=== PATIENT | female | born 1990 | race American Indian/Alaskan Native ===

== ENCOUNTER 2017-01-12 14:43 | Inpatient (IN) | payer MEDICAID, OTHER ==
[2017-01-12] MEDS ORDERED: Misoprostol 400 MCG (4 X 100 MCG TAB) RECTAL PRN (17:28)
[2017-01-12] MEDS ORDERED: Sodium Chloride 0.9% 10 ML Syringe FLUSH PRN (17:28)
[2017-01-12] MEDS ORDERED: Carboprost Tromethamine 250 MCG/1 ML Amp IM PRN (17:28)
[2017-01-12] MEDS ORDERED: Lactated Ringers 500 ML IV ONE (17:28)
[2017-01-12] MEDS ORDERED: Lidocaine 1% 30 ML SDV INJECT PRN (17:28)
[2017-01-12] MEDS ORDERED: Methylergonovine 0.2 MG/1 ML Amp IM PRN (17:28)
[2017-01-12] MEDS ORDERED: fentaNYL 100 MCG/2 ML SDV IVPUSH PRN (17:28)
[2017-01-12] MEDS ORDERED: Ondansetron 4 MG/2 ML SDV IV PRN (17:28)
[2017-01-12] MEDS ORDERED: Acetaminophen 325 MG Tab PO PRN (17:28)
[2017-01-12] MEDS: Lactated Ringers 1,000 ML IV SCH ×2 (19:39→22:51)
[2017-01-12] MEDS: Oxytocin/Normal Saline 30 UNIT/500 ML BAG IV SCH (21:08)
[2017-01-13] MEDS ORDERED: Oxytocin/Normal Saline 60 UNIT/1,000 ML BAG ONE (01:10)
[2017-01-13] MEDS ORDERED: ceFAZolin 2 GM in Premix Bag 1 BAG IV ONE ×2 (01:30→04:07)
[2017-01-13] MEDS: Lactated Ringers 1,000 ML IV SCH (01:34)
[2017-01-13] MEDS ORDERED: Citric Acid/Sodium Citrate Solution 30 ML Cup PO ONE ×2 (01:40→04:07)
[2017-01-13] MEDS: Oxytocin/Normal Saline 30 UNIT/500 ML BAG IV SCH (03:01)
[2017-01-13] MEDS ORDERED: Acetaminophen/oxyCODONE 325-5 MG Tab PO PRN (04:15)
[2017-01-13] MEDS ORDERED: Acetaminophen 325 MG Tab PO PRN (04:15)
[2017-01-13] MEDS ORDERED: Lactated Ringers 1,000 ML IV SCH (04:15)
[2017-01-13] MEDS ORDERED: Naloxone 2 MG/2 ML Syringe IVPUSH PRN (04:15)
[2017-01-13] MEDS ORDERED: ePHEDrine 50 MG/ML SDV IVPUSH PRN (04:15)
[2017-01-13] MEDS ORDERED: diphenhydrAMINE 50 MG/ML SDV IVPUSH PRN (04:15)
[2017-01-13] MEDS ORDERED: Ondansetron 4 MG/2 ML SDV IV PRN (04:15)
[2017-01-13] MEDS ORDERED: Famotidine 20 MG/2 ML SDV IVPUSH PRN (04:25)
[2017-01-13] MEDS ORDERED: Measles, Mumps & Rubella Vaccine 0.5 ML SDV SUBCUT ONE (04:48)
--- NOTE | 2017-01-13 05:52 | OR ---
DATE: 01/13/2017 PROCEDURE PERFORMED: Primary low transverse section with vacuum assistance. PREPROCEDURE DIAGNOSES: 1. A 40 and 5/7 weeks intrauterine based on 26-week ultrasound. 2. 3, para 2-0-0-2. 3. intolerance of labor with non-reassuring heart tracing. 4. Anemia of . 5. Heartburn of . 6. Late care. 7. Irregular periods. 8. Known uterine fibroid. 9. Blood type A positive. 10.Rubella nonimmune. 11.Group B streptococcus negative. POSTPROCEDURE DIAGNOSES: 1. A 40 and 5/7 weeks intrauterine based on 26-week ultrasound. 2. 3, para 3-0-0-3. 3. intolerance of labor with non-reassuring heart tracing. 4. Anemia of . 5. Heartburn of . 6. Late care. 7. Irregular periods. 8. Known uterine fibroid. 9. Blood type A positive. 10.Rubella nonimmune. 11.Group B streptococcus negative. BRIEF HISTORY: A 26-year-old female with the above-listed diagnoses, had been sent over from the clinic for NST due to postdates , found to have a category 2 tracing with limited accelerations and concern for compromise, so she was kept in the hospital with anticipation of induction of labor with Pitocin. However, baby was unable to tolerate and had recurrent decelerations and spontaneous decelerations. We were not able to get her into a successful labor and elected for the safest route of delivery being primary low transverse section. CONSENT: Discussed with the patient, the indications, risks, benefits, and alternatives of primary low transverse section including but not limited to, risk of infection and plan for preoperative antibiotics, risk of bleeding to the point of requiring a blood transfusion as well as its inherent risks. Risk of injuring any internal organs and adjacent structures including, but not limited to, large blood vessels, nerves, veins, fallopian tubes, ovaries, intestines, bladder, ureters, and any other adjacent structures. Discussed that any injuries would be repaired; however, she may require transfer to a larger facility if there were other complications, remote risk of significant injury to her or the baby and even remote risk of . She verbalized understanding. Her questions were answered, and she agreed to proceed. SURGEON: Leslie Ocampo MD PRESCRIPTION CLERK: Carmita Mike MD PROCEDURE IN DETAIL: The patient brought to the operating room. Pearce indwelling catheter had already been in place. Spinal anesthesia was obtained, and she was laid in the dorsal supine position with leftward tilt. Normal prep and drape were performed and then a Pfannenstiel skin incision made with scalpel and carried down to the underlying fascia with blunt finger dissection and use of cautery. Fascia incised in the midline with cautery and extended bilaterally using finger dissection and continued cautery. Superior fascial edge tented up and rectus muscle was dissected off bluntly and cautery was used to address bleeding blood vessels on the rectus muscles. Inferior fascial edge grasped, tented up, and rectus muscles dissected off sharply as well. Peritoneal cavity entered with blunt finger dissection and extended with traction. Uterus inspected and there were very large blood vessels noted on the maternal right- hand side. There was also displacement of the uterus toward the left despite the large left uterine fibroid on that side which was larger than the palm of my hand and fingers and felt to be adherent to the uterus in a subserosal fashion rather than the pedunculated fashion as was expected based on ultrasound report. Further inspection of the uterus showed that we would benefit from creating a bladder flap, which was performed with Metzenbaum's and DeBakey's. Appropriate uterine incision site was determined and made with scalpel and carried down until a thin layer was left. Uterus itself was entered with a hemostat, and uterine incision site expanded with the Perla method. 's head was brought up to the incision site, and low-profile vacuum was placed as to reduce risk of getting into the very large blood vessels present on the maternal right side of the uterus. Infant was delivered readily thereafter at 2:20 a.m. and had a strong vigorous cry. The umbilical cord was doubly clamped and cut. The Penningtons were placed on the bleeders on the uterus. 's mouth and nose were bulb suctioned, and he was taken to the warmer for further evaluation. The placenta was then delivered with gentle cord traction and concomitant uterine massage. Uterus then cleared of all clots and debris with a dry lap sponge. Hysterotomy site then closed with a running lock stitch of 0 Vicryl in the usual fashion. Some small bleeders were treated with cautery and then a second imbricating layer of stitches was placed to ensure hemostasis. Additional cautery was used thereafter and this layer was irrigated and hemostasis confirmed. Jamir O retractor was removed, and fibroid further palpated and pictures were taken prior to removal of the Jamir O retractor. Unfortunately, they did not adequately justify what the fibroid actually looked like at that time. The hysterotomy site was reinspected and remained hemostatic. The peritoneal layer was closed with a running stitch of 0 Vicryl. The subcutaneous tissues and fascia irrigated, cleared of any clots and debris. The fascia was closed with a running stitch of 0 looped PDS in the usual fashion. The skin layer then irrigated, cleared of any bleeders, and treated with cautery as necessary. Skin was closed with venkata. The patient tolerated the procedure well. ESTIMATED BLOOD LOSS: 900 mL. FLUIDS: 1100 mL crystalloids. URINE OUTPUT: 700 mL. COMPLICATIONS: None. FINDINGS: 1. Viable male infant, weighing 2905 g, 6 pounds 6 ounces. scores of 9 and 9. 2. Very large blood vessels across the uterus, and vacuum assistance was performed to help decrease trauma to the uterus itself and limit bleeding. 3. Large 10cm uterine fibroid (not pedunculated) left upper uterus superior to the fallopian tube. DISPOSITION: Mother to go to the PACU. Baby to return to the normal nursery until they are reunited. [facility] /[id number] ADAN
[2017-01-13] MEDS: Simethicone 80 MG Tab.Chew PO PRN ×4 (08:36→21:07)
[2017-01-13] MEDS: Prenatal Multivitamin with Calcium/Folic Acid/Iron Tab PO SCH (08:36)
[2017-01-13] MEDS: Docusate Sodium 100 MG Cap PO PRN ×2 (08:36→21:07)
[2017-01-13] MEDS: Acetaminophen/oxyCODONE 325-5 MG Tab PO PRN ×4 (08:37→21:08)
[2017-01-13] MEDS: Ferrous Sulfate 325 MG Tab PO SCH ×2 (08:38→21:07)
--- NOTE | 2017-01-13 09:46 | PN ---
DATE: 01/13/2017 SUBJECTIVE: Postoperative day #0, doing fairly well after her section, however, reporting some sharp incisional pain with also a throbbing quality specifically when she tries to shift or move in bed. She is tolerating a regular diet so far and just have lots of questions about healing from and questions about her son and the fact that he is smaller than his older siblings and what may have impacted all of that as well as future planning for tubal ligation and possible removal of the large uterine fibroid. Otherwise, Pearce catheter is in place, not yet passing flatus, and no other acute concerns. PHYSICAL EXAMINATION: Vital Signs: Pulse of 57, blood pressure 117/65, respiratory rate of 17, and O2 saturations 97% on room air. Heart: Regular without obvious murmur. Lungs: Clear to auscultation bilaterally. Abdomen: Soft. Fundus is firm and below the umbilicus. The dressing is clean, dry, and intact. Extremities: SCDs are on. Some trace edema is noted bilaterally. LABORATORY DATA: No new labs. ASSESSMENT: 1. Postoperative day #1, status post primary section with delivery of a small for gestational age infant post dates. 2. Anticipate anemia of acute blood loss. 3. Anemia of . 4. Heartburn of . 5. History of irregular periods. 6. Rubella nonimmune. PLAN: Anticipate continued routine postoperative cares and anticipate discharge home on postop day #3. She will also need to be getting her MMR vaccine. All of her questions were answered and discussed that there is really not a clear reason as to why her baby a small for gestational age. Anticipated had to do with an infarct that I had seen on the placenta in addition to her stressful work-life balance and being a full-time student in addition to uterine fibroid, possibly causing interference as well. Plan to see her again tomorrow sooner if any concerns. [facility] /[id number]
[2017-01-14] MEDS: Acetaminophen/oxyCODONE 325-5 MG Tab PO PRN ×6 (01:43→23:54)
[2017-01-14] MEDS: Simethicone 80 MG Tab.Chew PO PRN ×5 (07:56→23:54)
[2017-01-14] MEDS: Prenatal Multivitamin with Calcium/Folic Acid/Iron Tab PO SCH (09:28)
[2017-01-14] MEDS: Docusate Sodium 100 MG Cap PO PRN ×2 (09:28→20:06)
[2017-01-14] MEDS: Ferrous Sulfate 325 MG Tab PO SCH ×2 (09:28→20:06)
--- NOTE | 2017-01-14 11:49 | PN ---
DATE: 01/14/2017 SUBJECTIVE: Postoperative day #1 status post primary low-transverse section because of nonreassuring heart tones. Before we could even get labor initiated, the patient reports that she is doing fairly well. She can get up and ambulate around. She has been voiding without difficulties, passing flatus, but has not had a bowel movement. Reports upper and generalized abdominal pain with moving and also after she empties her bladder. She is unable to take ibuprofen, so we are limited on what we are able to give her for pain medications. She is bottle feeding her baby. Denies any fever or chills. No shortness of breath or chest pain. No symptoms of preeclampsia and denies other acute concerns at this time. OBJECTIVE: General: Well-appearing 26-year-old female. Vital Signs: Temperature is 98.7, pulse of 80, blood pressure 111/75, respiratory rate of 18, and O2 saturations 99% on room air. Heart: Regular without murmur. Lungs: Clear to auscultation bilaterally with good chest expansion. Reports using her incentive spirometer. Abdomen: Soft. There is some tenderness noted as would be anticipated postoperatively. Dressing removed and there is minimal blood on that dressing. Incision is clean, dry, and intact with venkata in place. No erythema or underlying fluctuance. No drainage. Extremities: Trace edema with MARGI hose on. No erythema or tenderness noted. No warmth to touch. LABORATORY DATA: Hemoglobin is down to 9.3 from a previous of 11.6. Platelets are 170. ASSESSMENT: 1. Postoperative day #1 status post primary section at 40 and 5/7 weeks. 2. Blood type A positive, rubella nonimmune, and group B strep negative. 3. Anemia of and acute blood loss. 4. Large uterine fibroid. 5. Baby delivered who is small for gestational age. Placenta was noted to be small. 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 PLAN: Continue normal postoperative cares. Anticipate discharge as early as tomorrow if she continues to do well. Discussed with her other potential anti- inflammatory such as Aleve but she has never taken that. We really have no other anti-inflammatories are felt safe with her history of hives for reaction. The patient is planning a tubal ligation and she has been reminded to make sure we signed tubal papers at her postoperative check appointment so that care and follow up with NEW ACCOUNT INTERVIEWER can be arranged. [facility] /[id number]
[2017-01-15] MEDS: Acetaminophen/oxyCODONE 325-5 MG Tab PO PRN ×2 (04:13→08:07)
[2017-01-15 07:41] VITALS: BP 113/71
[2017-01-15] MEDS: Simethicone 80 MG Tab.Chew PO PRN (08:06)
[2017-01-15] MEDS: Prenatal Multivitamin with Calcium/Folic Acid/Iron Tab PO SCH (08:06)
[2017-01-15] MEDS: Docusate Sodium 100 MG Cap PO PRN (08:07)
[2017-01-15] MEDS: Ferrous Sulfate 325 MG Tab PO SCH (08:08)
[2017-01-15] MEDS ORDERED: Morphine PF 1 MG/ML Amp ONE (11:09)
[2017-01-15] MEDS ORDERED: Oxytocin/Normal Saline 30 UNIT/500 ML BAG IV ONE (11:09)
[2017-01-15] MEDS ORDERED: ePHEDrine 50 MG/ML SDV IV ONE (11:09)
[2017-01-15] MEDS ORDERED: Lactated Ringers 1,000 ML IV ONE (11:09)
--- NOTE | 2017-01-24 01:20 | DISCH ---
ADMITTING DIAGNOSES: 1. A 40 and 4/7 weeks' intrauterine by 26-week ultrasound. 2. 3, para 2-0-0-2. 3. Anemia of . 4. Uterine fibroid. 5. Anemia of acute blood loss. 6. Heartburn in . 7. Late care. 8. Irregular periods. 9. Category II heart tracing post dates. DISCHARGE DIAGNOSES: 1. A 40 and 4/7 weeks' intrauterine by 26-week ultrasound. 2. 3, now para 3-0-0-3. 3. Anemia of . 4. Uterine fibroid. 5. Anemia of acute blood loss. 6. Heartburn in . 7. Late care. 8. Irregular periods. 9. Category II heart tracing post dates. 10.Delivery of male infant, small for gestational age. 11.Small placenta. 12.Non-reassuring heart tones remote from delivery. 13.Status post vacuum-assisted primary low transverse section. BRIEF HISTORY: A 26-year-old female, admitted to the hospital with the above listed diagnoses. She had been seen in the clinic and sent over to the hospital for NST because of being post dates and found to have a category 2 tracing; therefore, induction of labor was performed. Ultimately, we had non-reassuring heart tracing, and she was taken to the operating room and spinal anesthesia obtained. She had a primary low transverse section with vacuum assistance. The large uterine fibroid did not interfere with her section. It was superior and to the left of the uterus and encompassed the entire palm and my fingers when holding it. Please see operative report for full details. HOSPITAL COURSE: After delivery, the patient did well. Her pain was difficult to manage because she could not have NSAIDs, and we had difficulties with pain expectations having narcotics only as our available medication. She was, however, ambulating and tolerating regular diet, not showing any signs of postoperative complications or developing symptoms of preeclampsia. She has elected to bottle feed her baby and was ready for discharge on postoperative day #2. DISCHARGE CONDITION: Good. PHYSICAL EXAMINATION: Vital Signs: Temperature is 97.5, pulse 85, blood pressure 113/71, O2 saturations 94% on room air with a respiratory rate of 16. Most of her sats were above 95%. Heart: Regular without any obvious murmur. Lungs: Clear to auscultation bilaterally with good chest expansion. Abdomen: Soft. Uterus was firm and at the umbilicus especially when accounting for the fibroid. Incision site was clean, dry, and intact with venkata. Extremities: Trace edema bilaterally. No erythema or tenderness noted. LABORATORY FINDINGS: Admission hemoglobin 11.6, discharge of 10.2 and admission platelets of 200, discharge of 170. DISPOSITION: Home with family. FOLLOWUP: She will be seen in the office in the next week for staple removal and postop check. MEDICATIONS: 1. Percocet 1 to 2 tablets every 4 to 6 hours as needed for pain. 2. Colace 100 mg twice daily as needed for constipation. 3. The patient cannot have ibuprofen due to an allergy. 4. vitamin 1 daily 5. Iron 325 mg twice daily. DISCHARGE INSTRUCTIONS: Routine post section instructions were provided, and the patient's questions were answered. She understands reasons to call Labor and Delivery such as foul-smelling drainage, discharge, signs or symptoms of wound dehiscence, bleeding from the surgical site, fever, chills, or any other complications. [facility] /[id number] ADAN
== END 2017-01-15 11:10 | disposition home or self-care (01) | DRG 766 ==
LOC: DL.OBCHECK 14:43 → DL.OB 17:11 → DL.MS 01-13 02:10 → OBSVTOIN 01-13 02:20
PROVIDERS: ADMIT Family Medicine; ATTEND Family Medicine
PROC: 10D00Z1 Extraction of Products of Conception, Low, Open Approach (ICD-10-PCS; principal; 2017-01-13)
DX: O48.0 Post-term pregnancy (principal); Z3A.41 41 weeks gestation of pregnancy; Z37.0 Single live birth; O99.02 Anemia complicating childbirth; O76 Abnormality in fetal heart rate and rhythm complicating labor and delivery; O34.13 Maternal care for benign tumor of corpus uteri, third trimester; D25.9 Leiomyoma of uterus, unspecified; Z88.8 Allergy status to other drugs, medicaments and biological substances
CPT/HCPCS: 01961; 36415; 59020; 85018; 85027; 86850; 86900; 86901; 90471; 90707; A9270-GY; J0690; J1200; J2274; J2590; J7050; J7120

== ENCOUNTER 2018-05-21 06:09 | Inpatient (IN) | payer MEDICAID, OTHER ==
[~2018-05-21 06:09] MED LIST: Lactated Ringers 1,000 ML IV SCH; Oxytocin/Normal Saline 30 UNIT/500 ML BAG IV SCH; Sodium Chloride 0.9% 10 ML Syringe FLUSH PRN
[2018-05-21] MEDS ORDERED: ceFAZolin 2 GM in Premix Bag 1 BAG IV ONE (07:00)
[2018-05-21] MEDS ORDERED: Oxytocin/Normal Saline 60 UNIT/1,000 ML BAG ONE (07:00)
[2018-05-21] MEDS ORDERED: Citric Acid/Sodium Citrate Solution 30 ML Cup PO ONE (07:00)
[2018-05-21] MEDS: Lactated Ringers 1,000 ML IV SCH ×3 (07:25→18:22)
[2018-05-21] MEDS ORDERED: Carboprost Tromethamine 250 MCG/1 ML Amp IM PRN (08:00)
[2018-05-21] MEDS ORDERED: Tranexamic Acid 1,000 MG in Sodium Chloride 0.9% 100 ML IV PRN (08:00)
[2018-05-21] MEDS ORDERED: Misoprostol 400 MCG (4 X 100 MCG TAB) RECTAL PRN (09:16)
[2018-05-21] MEDS ORDERED: ePHEDrine 50 MG/ML SDV IVPUSH PRN (09:16)
[2018-05-21] MEDS ORDERED: Naloxone 2 MG/2 ML Syringe IVPUSH PRN (09:16)
[2018-05-21] MEDS ORDERED: Acetaminophen 325 MG Tab PO PRN (09:16)
[2018-05-21] MEDS ORDERED: Acetaminophen/oxyCODONE 325-5 MG Tab PO PRN (09:16)
[2018-05-21] MEDS ORDERED: Measles, Mumps & Rubella Vaccine 0.5 ML SDV SUBCUT ONE (09:16)
[2018-05-21] MEDS ORDERED: Methylergonovine 0.2 MG/1 ML Amp IM PRN (09:16)
[2018-05-21] MEDS ORDERED: Ondansetron 4 MG/2 ML SDV IV PRN (09:16)
[2018-05-21] MEDS ORDERED: diphenhydrAMINE 50 MG/ML SDV IVPUSH PRN (09:16)
--- NOTE | 2018-05-21 11:02 | OR ---
DATE: 05/21/2018 PREOPERATIVE DIAGNOSES: 1. A 27-year-old , 4, para 3, at 39 and 3/7 weeks' gestation. 2. Prior section. 3. A positive blood type. 4. Group B streptococcus negative. 5. Rubella nonimmune. 6. Anemia of since admission, hemoglobin 11.6. 7. Desires repeat section (declines TOLAC/). POSTOPERATIVE DIAGNOSES: 1. A 27-year-old , 4, now para 4, at 39 and 3/7 weeks' gestation with viable male infant born at 8:16 a.m. on 05/21/2016 with scores of 8 and 9, weighing 3360 g or 7 pounds 6 ounces by elective repeat section, low transverse, with a vacuum assist. 2. Prior section. 3. A positive blood type. 4. Group B streptococcus negative. 5. Rubella nonimmune. 6. Anemia of since admission, hemoglobin 11.6. 7. Desires repeat section (declines TOLAC/). 8. A 10 plus cm fibroid noted at the top left corner of the uterus with a wide base. 9. mother (plans on nursing). PROCEDURE: Elective repeat low transverse section with vacuum assist. ASSISTANTS: 1. Leslie Ocampo MD. 2. Ceci Stern MS-III. ESTIMATED BLOOD LOSS: 550 mL. FINDINGS: This delightful 27-year-old , G4, P3 presented for a repeat as scheduled. Her NST was reassuring, and she was subsequently brought down to the OR and underwent spinal anesthesia with excellent results. She was prepped and draped in the usual sterile manner, and a Pearce catheter had been placed with return of clear urine. Incision made through her old Pfannenstiel scar and carried down with electrocautery through the subcutaneous tissue to the fascia which was divided transversely. She was noted to have fairly substantial scar tissue. Inferior and superior fascial flaps were developed with sharp and blunt dissection. The rectus was identified and divided in the midline. The peritoneum was identified and entered bluntly. The incision was extended until we had excellent visualization of the lower uterine segment. The bladder flap was developed with sharp and blunt dissection. A stab incision was made into the old scar and essentially had nearly a uterine window as she had a very thin lower uterine segment noted over our previous incision. This was carried down until we had a large bulging amniotic sac. This was opened with hemostat with return of a large amount of clear amniotic fluid. The baby's head was elevated up through the incision with a vacuum to avoid any tearing laterally of this thin lower uterine segment. This viable 7- pound 6-ounce/3360-g male was delivered at 8:06 a.m. and had excellent scores of 8 and 9. He was immediately suctioned, dried, and stimulated on the table. The cord was doubly clamped and cut, and the baby was carried to the waiting nursery staff by Dr. Hall. I obtained the cord blood sample. A 3- vessel cord was noted. The placenta was easily delivered and later inspected and found to have a marginal battledore insertion, but otherwise, be complete intact and appeared to be normal. The uterus was wiped clean and dry and was noted to have a large 10 plus cm fibroid that was attached to the top on the left side and had a very wide approximately 5 to 6 cm base. It was very vascular. Examination internally showed it did not connect with the uterine cavity. The uterine cavity was wiped clean and dry. A Pitocin IV infusion was started per protocol, and the uterus firmed up nicely with a normal flow. The uterine incision edges were grasped with Vázquez forceps, and the uterus was closed with a running locking #1 Vicryl suture with excellent results. A second intermittent running locking layer was put for hemostasis and to maintain her status. The large Jamir retractor was removed. Gutters were examined and are dry. All clots were removed, and they were free of any sign of active bleeding. Peritoneum brought together with a [id number] stitch of remaining 0 Vicryl with good results. The fascia was then brought together with 0 Maxon loop suture in a running fashion with excellent results. Subcutaneous space was irrigated, aspirated, and examined; and all bleeders were electrocauterized. The skin edges were brought together with venkata. All counts were correct. There were no intraoperative complications. The patient received 2 g of Ancef preoperatively. Pitocin continues to infuse per protocol. Clear urine continues to drain per Pearce. The patient tolerated the procedure well and was transferred to the recovery room in excellent condition. Again, there were no intraoperative complications, and we will follow routine postop and orders and cares. The patient is allergic to ibuprofen. Therefore, we will not use our usual Toradol orders. Further management pending her clinical course. A time-out procedure was performed in my presence. [facility] /[id number]
[2018-05-21] MEDS: Simethicone 80 MG Tab.Chew PO SCH ×3 (13:33→20:15)
[2018-05-21] MEDS ORDERED: Dexamethasone 4 MG/ML SDV IV ONE (14:41)
[2018-05-21] MEDS ORDERED: Ondansetron 4 MG/2 ML SDV IV ONE (14:41)
[2018-05-21] MEDS ORDERED: Morphine PF 1 MG/ML Amp INJECT ONE (14:41)
[2018-05-21] MEDS ORDERED: Lactated Ringers 1,000 ML IV ONE (14:41)
[2018-05-21] MEDS ORDERED: ePHEDrine 50 MG/ML SDV IV ONE (14:41)
[2018-05-21] MEDS ORDERED: Oxytocin/Normal Saline 30 UNIT/500 ML BAG IV ONE (14:55)
[2018-05-21] MEDS: ceFAZolin 1 GM in Premix Bag 1 BAG IV SCH (16:13)
[2018-05-21] MEDS: Acetaminophen/oxyCODONE 325-5 MG Tab PO PRN ×3 (16:18→23:57)
[2018-05-21] MEDS: Docusate Sodium 100 MG Cap PO PRN (20:16)
[2018-05-22] MEDS: Lactated Ringers 1,000 ML IV SCH (02:30)
[2018-05-22] MEDS: Acetaminophen/oxyCODONE 325-5 MG Tab PO PRN ×5 (06:25→22:38)
--- NOTE | 2018-05-22 07:44 | PCM.PNPP ---
- General Info Date of Service: 05/22/18 Subjective Update: Patient is a 27 year old B7Q4-6-8-0 female status [facility]. Pearce removed. Is voiding well. Ambulating well. Tolerating general diet. No flatus or bowel movement. Mild ankle swelling. Moderate cramping and normal period like bleeding. Reports Left sided throbbing pain to palpation 09/18. Periumbilical pain that radiates to LLQ and incision. - Review of Systems General: Denies: Fever, Weakness, Chills HEENT: Reports: Contact Lenses. Denies: Headaches, Visual Changes Pulmonary: Denies: Shortness of Breath, Pleuritic Chest Pain, Cough Cardiovascular: Denies: Chest Pain, Palpitations, Dyspnea on Exertion Gastrointestinal: Reports: Abdominal Pain (as per HPI). Denies: Nausea, Vomiting Genitourinary: Denies: Dysuria, Frequency, Urgency, Hematuria Musculoskeletal: Reports: No Symptoms Skin: Reports: No Symptoms Neurological: Reports: No Symptoms Psychiatric: Reports: Depression (PPD scale 10) - General Info Date of Service: 05/22/18 - Patient Data Vital Signs - Most Recent: Last Vital Signs Temp 98.4 F 05/22/18 04:00 Pulse 66 05/22/18 04:00 Resp 18 05/22/18 04:00 BP 100/54 L 05/22/18 04:00 Pulse Ox 98 05/22/18 04:00 Weight - Most Recent: 198 lb I&O - Last 24 Hours: Intake & Output 05/21/18 05/22/18 05/22/18 22:59 06:59 14:59 Intake Total 97 1100 Output Total 300 1200 Balance -203 -100 Med Orders - Current: Current Medications Acetaminophen (Tylenol) 650 mg PO Q6H PRN PRN Reason: mild pain or fever Carboprost Tromethamine (Hemabate Ds) 250 mcg IM ASDIRECTED PRN PRN Reason: Excessive vaginal bleeding Diphenhydramine HCl (Benadryl) 25 mg IVPUSH Q6H PRN PRN Reason: Itching or Nausea Docusate Sodium (Colace) 100 mg PO Q12H PRN PRN Reason: Constipation Last Admin: 05/21/18 20:16 Dose: 100 mg Ephedrine Sulfate (Ephedrine Sulfate) 5 mg IVPUSH SEECOMMENT PRN PRN Reason: Other Ferrous Sulfate (Ferrous Sulfate) 325 mg PO BRK [facility] Lactated Ringer's (Ringers, Lactated) 1,000 mls @ 125 mls/hr IV ASDIRECTED [facility] Last Admin: 05/22/18 02:30 Dose: 125 mls/hr Tranexamic Acid 1,000 mg/ (Sodium Chloride) 110 mls @ 660 mls/hr IV ONETIME PRN PRN Reason: Bleeding Oxytocin/Sodium Chloride (Pitocin In Ns 30 Unit/500 Ml) 30 unit in 500 mls @ 500 mls/hr IV TITRATE [facility]; Protocol Last Titration: 05/21/18 11:15 Dose: 0 ml/hr, 0 mls/hr Cefazolin Sodium/Dextrose 1 gm (/ Premix) 50 mls @ 100 mls/hr IV Q8H [facility] Stop: 05/22/18 08:29 Last Infusion: 05/22/18 00:30 Dose: Infused Methylergonovine Maleate (Methergine) 0.2 mg IM ONETIME PRN PRN Reason: Excessive Vaginal Bleeding Misoprostol (Cytotec) 800 mcg RECTAL ASDIRECTED PRN PRN Reason: Excessive bleeding Naloxone HCl (Narcan) 0.1 mg IVPUSH SEECOMMENT PRN PRN Reason: Respiratory Depression Ondansetron HCl (Zofran) 4 mg IV Q4H PRN PRN Reason: Nausea/Vomiting Oxycodone/Acetaminophen (Percocet 325-5 Mg) 1 tab PO Q4H PRN PRN Reason: Pain (moderate 4-6) Oxycodone/Acetaminophen (Percocet 325-5 Mg) 2 tab PO Q4H PRN PRN Reason: Pain (moderate 4-6) Last Admin: 05/22/18 06:25 Dose: 2 tab Prenat Multivit/Treasure/Iron/Folic Ac ( Plus Iron) 1 each PO DAILY [facility] Simethicone (Simethicone) 160 mg PO QID [facility] Last Admin: 05/21/18 20:15 Dose: 160 mg Sodium Chloride (Saline Flush) 10 ml FLUSH ASDIRECTED PRN PRN Reason: Keep Vein Open Discontinued Medications Citric Acid/Sodium Citrate (Bicitra Solution) 30 ml PO ONETIME ONE Stop: 05/21/18 07:01 Last Admin: 05/21/18 07:23 Dose: 30 ml Dexamethasone (Dexamethasone) 8 mg IV .STK-MED ONE Stop: 05/21/18 14:42 Ephedrine Sulfate (Ephedrine Sulfate) 20 mg IV .STK-MED ONE Stop: 05/21/18 14:42 Cefazolin Sodium/Dextrose 2 gm (/ Premix) 50 mls @ 100 mls/hr IV ONETIME ONE Stop: 05/21/18 07:29 Last Admin: 05/21/18 07:37 Dose: 100 mls/hr Lactated Ringer's (Ringers, Lactated) 1,000 mls @ 500 mls/hr IV .BOLUS RAUL Last Admin: 05/21/18 06:49 Dose: 500 mls/hr Oxytocin/Sodium Chloride (Pitocin In Ns 30 Unit/500 Ml) Confirm Administered Dose 60 unit in 1,000 mls @ as directed .ROUTE .STK-MED ONE Stop: 05/21/18 07:01 Lactated Ringer's (Ringers, Lactated) 1,000 mls @ as directed IV .STK-MED ONE Stop: 05/21/18 14:42 Oxytocin/Sodium Chloride (Pitocin In Ns 30 Unit/500 Ml) 30 unit in 500 mls @ as directed IV .STK-MED ONE Stop: 05/21/18 14:56 Measles/Mumps/Rubella Vaccine Live (M-M-R Ii Vaccine) 0.5 ml SUBCUT .ONCE ONE Stop: 05/21/18 09:17 Last Admin: 05/21/18 20:29 Dose: 0.5 ml Morphine Sulfate (Duramorph Pf) 0.15 mg INJECT .STK-MED ONE Stop: 05/21/18 14:42 Ondansetron HCl (Zofran) 4 mg IV .STK-MED ONE Stop: 05/21/18 14:42 - Interaction Disposition, : in Room with Family Infant Feeding: Bottle Fed , Other (see below) (Hesitent to feed due to reports that other children did not tolerate feedings well. ) Support Person: Significant Other - Recovery Exam Fundal Tone: Firm Fundal Level: Fibroid palpable on left. Fundal Placement: Midline Lochia Amount: Small Lochia Color: Rubra/Red Perineum Description: Intact, Minimal Bruising/Swelling Episiotomy/Laceration: None Bladder Status: Nonpalpable, Indwelling Catheter in Place Urinary Elimination: Indwelling Catheter - Exam General: Alert, Oriented, Cooperative, No Acute Distress HEENT: EOMI, Mucous Membr. Moist/[place] Neck: Supple Lungs: Clear to Auscultation, Normal Respiratory Effort Cardiovascular: Regular Rate, Regular Rhythm, Murmurs (systolic murmur heard. ) GI/Abdominal Exam: Normal Bowel Sounds, Soft, Tender (on left) Extremities: Normal Inspection, Normal Range of Motion, Pedal Edema (trace) Skin: Warm, Dry, Intact Wound/Incisions: Healing Well, Dressing Dry and Intact, No Drainage. No: Erythema Neurological: No New Focal Deficit, Normal Gait Psy/Mental Status: Alert, Normal Mood - Problem List & Annotations (1) delivery, delivered, current hospitalization SNOMED Code(s): 650278324 Code(s): O82 - ENCOUNTER FOR DELIVERY WITHOUT INDICATION Status: Acute Current Visit: Yes - Problem List Review Problem List Initiated/Reviewed/Updated: Yes - Assessment Assessment:: Patient is 27 year old now P4 female status post operative day #1 from elective repeat low transverse section at 39w2d. 1. Doing well. 2. Formula feeding. 3. Left sided abdominal pain. 4. Hoping for discharge tomorrow. - Plan Plan:: 1. Routine post-operative cares. 2. Formula feeding. 3. PPD scale 10. 4. Left sided fibroid. 5. Periumbilical and LLQ abdominal pain. 6. Discharge either tomorrow or Sunday. Patient was seen and evaluated today by myself and Dr. Carmita iMke. Assessment and plan are under advisement of Dr. Mike. -Ceci Stern, [facility]
[2018-05-22] MEDS: Ferrous Sulfate 325 MG Tab PO SCH (08:19)
[2018-05-22] MEDS: Docusate Sodium 100 MG Cap PO PRN ×2 (08:19→22:38)
[2018-05-22] MEDS: Simethicone 80 MG Tab.Chew PO SCH ×4 (08:19→22:37)
[2018-05-22] MEDS: Prenatal Multivitamin with Calcium/Folic Acid/Iron Tab PO SCH (08:19)
[2018-05-22] MEDS: ceFAZolin 1 GM in Premix Bag 1 BAG IV SCH ×3 (08:20)
[2018-05-23] MEDS: Acetaminophen/oxyCODONE 325-5 MG Tab PO PRN ×2 (03:53→08:22)
[2018-05-23] MEDS: Ferrous Sulfate 325 MG Tab PO SCH (08:22)
[2018-05-23] MEDS: Prenatal Multivitamin with Calcium/Folic Acid/Iron Tab PO SCH (08:22)
[2018-05-23] MEDS: Simethicone 80 MG Tab.Chew PO SCH (08:22)
[2018-05-23] MEDS: Docusate Sodium 100 MG Cap PO PRN (08:23)
[2018-05-23 09:58] VITALS: BP 116/73
--- NOTE | 2018-05-23 10:56 | PCM.NBDC ---
[place] Discharge Summary - Discharge Data Date of : 89 Discharge Disposition: Home, Self-Care 01 Condition: Good - Discharge Diagnosis/Problem(s) (1) delivery, delivered, current hospitalization SNOMED Code(s): 568455590 ICD Code: O82 - ENCOUNTER FOR DELIVERY WITHOUT INDICATION Status: Acute Current Visit: Yes - Discharge Plan Home Medications: Home Meds PNV95/Ferrous Fumarate/FA [ Multivitamins] 1 tab PO DAILY 11/01/14 [ History] Ferrous Sulfate 325 mg PO BID 01/12/17 [History] Acetaminophen/oxyCODONE [Percocet 325-5 MG] 2 tab PO Q4H PRN #30 tablet [Rx] Docusate Sodium [Colace] 100 mg PO Q12H PRN #60 cap 01/15/17 [Rx] Ferrous Sulfate 325 mg PO BID #60 tablet 01/15/17 [Rx] Instructions: Delivery, Care After, Care After Delivery History - Maternal History Mother's Blood Type: A Mother's Rh: Positive - Delivery Data Total Score 1 Minute: 9 Nursery Info & Exam - Vital Signs Vital Signs: Last Vital Signs Temp 98.6 F 05/23/18 09:57 Pulse 72 05/23/18 09:57 Resp 16 05/23/18 09:57 BP 116/73 05/23/18 09:57 Pulse Ox 100 05/23/18 09:57 Current Weight: 198 lb Height: 5 ft 2 in
--- NOTE | 2018-05-23 10:58 | PCM.DCSUM1 ---
Discharge Summary - Hospital Course HPI Initial Comments: Patient is a 27 year old A3R7-7-3-6 now G2B1-9-6-3 female status post operative day #2 from [facility] at 39w2d gestation. Ambulating. General diet. Voiding. Passing flatus. Very tender across lower abdomen especially in left lower quadrant. Trace ankle edema bilaterally. Normal amount of cramping and bleeding. No concerns regarding incision cares. Betzaida in place. - Discharge Data Discharge Date: 05/23/18 Discharge Disposition: Home, Self-Care 01 Condition: Good - Discharge Diagnosis/Problem(s) (1) delivery, delivered, current hospitalization SNOMED Code(s): 156339814 ICD Code: O82 - ENCOUNTER FOR DELIVERY WITHOUT INDICATION Status: Acute Current Visit: Yes (2) Fibroid, uterine SNOMED Code(s): 80610875 ICD Code: D25.9 - LEIOMYOMA OF UTERUS, UNSPECIFIED Status: Acute Current Visit: Yes (3) Type A blood, Rh positive SNOMED Code(s): 704601243 ICD Code: Z67.10 - TYPE A BLOOD, RH POSITIVE Status: Acute Current Visit : Yes (4) Rubella nonimmune status, delivered, current hospitalization SNOMED Code(s): 069570421 ICD Code: O99.89 - OTH DISEASES AND CONDITIONS COMPL PREG/CHLDBRTH; Z28.3 - UNDERIMMUNIZATION STATUS Status: Acute Current Visit: Yes (5) Anemia affecting SNOMED Code(s): 27770920 ICD Code: O99.019 - ANEMIA COMPLICATING , UNSPECIFIED TRIMESTER Status: Acute Current Visit: Yes - Patient Summary/Data Operative Procedure(s) Performed: Please see Operative note for details. [facility] , with vacuum-assist Consults: Consultations 05/20/18 22:21 Consult to Life Teacher [CONS] Routine - Patient Instructions Diet: Regular Diet as Tolerated Activity: As Tolerated, No Strenuous Activities Showering/Bathing: May Shower Wound/Incision Care: Keep Operative Site/Wound Site Clean and Dry Notify Provider of: Fever, Increased Pain, Swelling and Redness, Drainage, Nausea and/or Vomiting - Discharge Plan *PRESCRIPTION DRUG MONITORING PROGRAM REVIEWED*: No *COPY OF PRESCRIPTION DRUG MONITORING REPORT IN PATIENT SONDRA: No Home Medications: Home Meds PNV95/Ferrous Fumarate/FA [ Multivitamins] 1 tab PO DAILY 11/01/14 [ History] Ferrous Sulfate 325 mg PO BID 01/12/17 [History] Acetaminophen/oxyCODONE [Percocet 325-5 MG] 2 tab PO Q4H PRN #30 tablet [Rx] Docusate Sodium [Colace] 100 mg PO Q12H PRN #60 cap 01/15/17 [Rx] Ferrous Sulfate 325 mg PO BID #60 tablet 01/15/17 [Rx] Patient Handouts: Delivery, Care After, Care After Delivery - Discharge Summary/Plan Comment DC Time >30 min.: No Discharge Summary/Plan Comment: ASSESSMENT: 27 year old G4now P4 female status post operative day #2 from [facility] with vacuum assist at 39w2d. 1. doing well. 2. formula feeding. 3. Lower abdominal pain, greatest on right. 4. Large uterine fibroid 10+cm off top left with wide base. 5. Delivered term male . PLAN: 1. Discharge home 2. Formula feeding 3. Allergy to Ibuprofen. Prescribed Percocet for pain control. 4. Non-stick dressing applied to incision. 5. Directed to call clinic tomorrow to schedule follow-up appointment with Dr. Recinos on Sunday05/27/18. 6. Staple removal at this visit if indicated. Patient was seen and evaluated by myself and Dr. Hall. Discharge is under advisement of Dr. Hall and Dr. Mike. -Ceci Stern [facility] - General Info Date of Service: 05/23/18 - Review of Systems General: Reports: No Symptoms HEENT: Reports: No Symptoms Pulmonary: Reports: No Symptoms Cardiovascular: Reports: No Symptoms Gastrointestinal: Reports: Abdominal Pain, Flatus Genitourinary: Reports: No Symptoms Skin: Reports: No Symptoms Neurological: Reports: No Symptoms - Patient Data Vitals - Most Recent: Last Vital Signs Temp 98.6 F 05/23/18 09:57 Pulse 72 05/23/18 09:57 Resp 16 05/23/18 09:57 BP 116/73 05/23/18 09:57 Pulse Ox 100 05/23/18 09:57 Weight - Most Recent: 198 lb Lab Results - Last 24 hrs: Laboratory Results - last 24 hr 05/22/18 Range/Units 10:56 WBC 9.9 (5.0-10.0) 10^3/uL RBC 3.43 L (4.2-5.4) 10^6/uL Hgb 9.9 L D (12.0-16.0) g/dL Hct 31.9 L (37.0-47.0) % MCV 93.0 (80-100) fL MCH 28.9 (27.0-34.0) pg MCHC 31.0 L (33.0-35.0) g/dL Plt Count 168 (150-450) 10^3/uL Neut % (Auto) 64.4 (42.2-75.2) % Lymph % (Auto) 27.5 (20.5-50.1) % Wirt % (Auto) 7.4 (2-8) % Eos % (Auto) 0.5 L (1.0-3.0) % Baso % (Auto) 0.2 (0.0-1.0) % Med Orders - Current: Current Medications Acetaminophen (Tylenol) 650 mg PO Q6H PRN PRN Reason: mild pain or fever Carboprost Tromethamine (Hemabate Ds) 250 mcg IM ASDIRECTED PRN PRN Reason: Excessive vaginal bleeding Diphenhydramine HCl (Benadryl) 25 mg IVPUSH Q6H PRN PRN Reason: Itching or Nausea Docusate Sodium (Colace) 100 mg PO Q12H PRN PRN Reason: Constipation Last Admin: 05/23/18 08:23 Dose: 100 mg Ephedrine Sulfate (Ephedrine Sulfate) 5 mg IVPUSH SEECOMMENT PRN PRN Reason: Other Ferrous Sulfate (Ferrous Sulfate) 325 mg PO BRK RAUL Last Admin: 05/23/18 08:22 Dose: 325 mg Lactated Ringer's (Ringers, Lactated) 1,000 mls @ 125 mls/hr IV ASDIRECTED RAUL Last Admin: 05/22/18 02:30 Dose: 125 mls/hr Tranexamic Acid 1,000 mg/ (Sodium Chloride) 110 mls @ 660 mls/hr IV ONETIME PRN PRN Reason: Bleeding Oxytocin/Sodium Chloride (Pitocin In Ns 30 Unit/500 Ml) 30 unit in 500 mls @ 500 mls/hr IV TITRATE [facility]; Protocol Last Titration: 05/21/18 11:15 Dose: 0 ml/hr, 0 mls/hr Methylergonovine Maleate (Methergine) 0.2 mg IM ONETIME PRN PRN Reason: Excessive Vaginal Bleeding Misoprostol (Cytotec) 800 mcg RECTAL ASDIRECTED PRN PRN Reason: Excessive bleeding Naloxone HCl (Narcan) 0.1 mg IVPUSH SEECOMMENT PRN PRN Reason: Respiratory Depression Ondansetron HCl (Zofran) 4 mg IV Q4H PRN PRN Reason: Nausea/Vomiting Oxycodone/Acetaminophen (Percocet 325-5 Mg) 1 tab PO Q4H PRN PRN Reason: Pain (moderate 4-6) Oxycodone/Acetaminophen (Percocet 325-5 Mg) 2 tab PO Q4H PRN PRN Reason: Pain (moderate 4-6) Last Admin: 05/23/18 08:22 Dose: 2 tab Prenat Multivit/[place]/Iron/Folic Ac ( Plus Iron) 1 each PO DAILY [facility] Last Admin: 05/23/18 08:22 Dose: 1 each Simethicone (Simethicone) 160 mg PO QID [facility] Last Admin: 05/23/18 08:22 Dose: 160 mg Sodium Chloride (Saline Flush) 10 ml FLUSH ASDIRECTED PRN PRN Reason: Keep Vein Open Discontinued Medications Citric Acid/Sodium Citrate (Bicitra Solution) 30 ml PO ONETIME ONE Stop: 05/21/18 07:01 Last Admin: 05/21/18 07:23 Dose: 30 ml Dexamethasone (Dexamethasone) 8 mg IV .STK-MED ONE Stop: 05/21/18 14:42 Ephedrine Sulfate (Ephedrine Sulfate) 20 mg IV .STK-MED ONE Stop: 05/21/18 14:42 Cefazolin Sodium/Dextrose 2 gm (/ Premix) 50 mls @ 100 mls/hr IV ONETIME ONE Stop: 05/21/18 07:29 Last Admin: 05/21/18 07:37 Dose: 100 mls/hr Lactated Ringer's (Ringers, Lactated) 1,000 mls @ 500 mls/hr IV .BOLUS [facility] Last Admin: 05/21/18 06:49 Dose: 500 mls/hr Oxytocin/Sodium Chloride (Pitocin In Ns 30 Unit/500 Ml) Confirm Administered Dose 60 unit in 1,000 mls @ as directed .ROUTE .STK-MED ONE Stop: 05/21/18 07:01 Cefazolin Sodium/Dextrose 1 gm (/ Premix) 50 mls @ 100 mls/hr IV Q8H [facility] Stop: 05/22/18 08:29 Last Admin: 05/22/18 08:20 Dose: 100 mls/hr Lactated Ringer's (Ringers, Lactated) 1,000 mls @ as directed IV .STK-MED ONE Stop: 05/21/18 14:42 Oxytocin/Sodium Chloride (Pitocin In Ns 30 Unit/500 Ml) 30 unit in 500 mls @ as directed IV .STK-MED ONE Stop: 05/21/18 14:56 Measles/Mumps/Rubella Vaccine Live (M-M-R Ii Vaccine) 0.5 ml SUBCUT .ONCE ONE Stop: 05/21/18 09:17 Last Admin: 05/21/18 20:29 Dose: 0.5 ml Morphine Sulfate (Duramorph Pf) 0.15 mg INJECT .STK-MED ONE Stop: 05/21/18 14:42 Ondansetron HCl (Zofran) 4 mg IV .STK-MED ONE Stop: 05/21/18 14:42 - Exam General: Reports: Alert, Oriented, Cooperative, No Acute Distress HEENT: Reports: EOMI Neck: Reports: Supple Lungs: Reports: Clear to Auscultation, Normal Respiratory Effort Cardiovascular: Reports: Regular Rate, Regular Rhythm GI/Abdominal Exam: Normal Bowel Sounds, Soft, Tender (to palpation across lower abdomen especially on left side. Location of large uterine fibroid. ) (Female) Exam: Fundal Height (firm uterus 3cm below umbilicus ), Vaginal Bleeding Extremities: Normal Inspection, Normal Range of Motion, Non-Tender, Pedal Edema (trace) Skin: Reports: Warm, Dry, Intact Wound/Incisions: Reports: Healing Well (inversion of edges exposed on right side of incision. Non-stick dressing applied. Clean, dry. )
== END 2018-05-23 11:25 | disposition home or self-care (01) | DRG 788 ==
LOC: DL.MS 06:09 → OBSVTOIN 08:16
PROVIDERS: ADMIT Family Medicine; ATTEND Family Medicine
PROC: 10D00Z1 Extraction of Products of Conception, Low, Open Approach (ICD-10-PCS; principal; 2018-05-21)
DX: O34.13 Maternal care for benign tumor of corpus uteri, third trimester (principal); Z3A.39 39 weeks gestation of pregnancy; Z37.0 Single live birth; Z88.6 Allergy status to analgesic agent; O99.013 Anemia complicating pregnancy, third trimester; D64.9 Anemia, unspecified; O34.211 Maternal care for low transverse scar from previous cesarean delivery; Z23 Encounter for immunization
CPT/HCPCS: 36415; 59025; 85025; 90471; 90707; 94010; A9270-GY; J0690; J1100; J2274; J2405; J2590; J7120

== ENCOUNTER 2021-04-21 19:24 | Emergency (ER) | payer MEDICAID, OTHER ==
[2021-04-21 19:53] VITALS: BP 135/82; PULSE 82
[2021-04-21] MEDS ORDERED: Penicillin G Benzathine/Procaine 600-600 1.2 Millunits/2 ML Syringe IM ONE (20:26)
[2021-04-21 20:37] LABS: CORONAVIRUS COVID-19 NAA POSITIVE (NEGATIVE)
== END 2021-04-21 20:46 | disposition home or self-care (01) ==
LOC: DL.ED 19:24
DX: U07.1 COVID-19 (principal); J03.90 Acute tonsillitis, unspecified; Z88.8 Allergy status to other drugs, medicaments and biological substances
CPT/HCPCS: 0240U; 87081; 87430; 96372; 99283; J0558